=== PATIENT | male | born 1990 | race Caucasian/White ===

== ENCOUNTER 2019-06-26 11:13 | Observation (INO) | payer OTHER ==
[~2019-06-26] VITALS: Ht 167.6 cm; Wt 90.2 kg
[2019-06-26 11:15] VITALS: BP 149/94
[2019-06-26 11:45] LABS: CALCIUM 9.3 mg/dL (8.5-10.1); CREATININE 1.4 mg/dL (0.6-1.3); POTASSIUM 3.4 mmol/L (3.5-5.1)
[2019-06-26 11:48] LABS: APTT 24.8 Seconds (25.0-31.3); PROTIME 10.4 Seconds (9.20-11.50)
[2019-06-26 11:50] LABS: TOTAL BILIRUBIN 0.5 mg/dL (<0.1-1.0); TOTAL PROTEIN 8.7 g/dL (6.4-8.2)
[2019-06-26 11:53] LABS: ABSOLUTE BASOPHILS 0.1 thou/uL (0.0-0.2); ABSOLUTE LYMPHOCYTES 2.2 thou/uL (0.8-5.3); ABSOLUTE MONOCYTES 0.5 thou/uL (0.0-1.2); ABSOLUTE NEUTROPHILS 7.1 thou/uL (1.6-8.1); BASOPHILS 0.9 %; EOSINOPHILS 0.2 %; HEMATOCRIT 53.9 % (42.0-52.0); HEMOGLOBIN 19.4 gm/dL (14.0-18.0); LYMPHOCYTES 22.1 %; MCH 31.7 pg (26.0-34.0); MCHC 35.9 g/dL (28.0-37.0); MCV 88.3 fL (80.0-100.0); MONOCYTES 5.4 %; MPV 9.3 fl. (7.2-11.1); NUCLEATED RBCS 0 /100WBC; PLATELET COUNT* 338 thou/uL (150-400); POLYS 71.4 %; RDW-CV 12.7 % (10.5-14.5)
[2019-06-26 12:16] LABS: URINE BILIRUBIN NEGATIVE (Negative); URINE BLOOD NEGATIVE (Negative); URINE CLARITY CLEAR; URINE COLOR YELLOW; URINE GLUCOSE-RANDOM NEGATIVE (Negative); URINE KETONES NEGATIVE (Negative); URINE LEUKOCYTES-REFLEX NEGATIVE (Negative); URINE NITRITE-REFLEX NEGATIVE (Negative); URINE PROTEIN NEGATIVE (Negative); URINE SPECIFIC GRAVITY <= 1.005 (1.005-1.030); URINE UROBILINOGEN 0.2 E.U./dl (0.2-1.0)
[2019-06-26 12:23] LABS: AMP/METHAMP Negative (Negative); BARBITURATES Negative (Negative); BENZODIAZEPINES Negative (Negative); COCAINE Negative (Negative); METHADONE Negative (Negative); OPIATES Negative (Negative); PCP Negative (Negative); THC Negative (Negative)
--- NOTE | 2019-06-26 15:02 | 2DMMODE ---
[place] [address] 2 D/M-MODE ECHOCARDIOGRAM Name: MAHOGANY MCKENORUBÉN Vazquez Room: [facility]9 ADM IN [place]#: [id number] Admission: 06/26/19 Attend Phys: Ella Hyman, Discharge: Date of : 89 Date of Service: 06/26/19 1500 Report #: [id number] THIS REPORT FOR: cc: FAM - No family physician/PCP FAM - No family physician/PCP Lewis Coffey MD [facility] ~ APPROVED REPORT Study performed: 06/26/2019 14:25:12 EXAM: Comprehensive 2D, Doppler, and color-flow Echocardiogram Patient Location: In-Patient Room #: 207 Status: routine BSA: 1.98 HR: 114 bpm BP: 122/87 mmHg Rhythm: NSR Other Information Study Quality: Good Indications Arrhythmia Chest Pain 2D Dimensions IVSd: 9.84 (7-11mm) LVOT Diam: 19.80 (18-24mm) LVDd: 45.54 mm PWd: 8.40 (7-11mm) Ascending Ao: 28.56 (22-36mm) LVDs: 25.84 (25-40mm) Aortic Root: 26.89 mm Volumes Left Atrial Volume (Systole) LA ESV Index: 18.60 mL/m2 Aortic Valve AoV Peak Spencer.: 1.18 m/s AO Peak Gr.: 5.56 mmHg LVOT Max P.94 mmHg AO Mean Gr.: 3.06 mmHg LVOT Mean P.99 mmHg LVOT Max V: 0.99 m/s AO V2 VTI: 21.19 cm LVOT Mean V: 0.65 m/s GARETH (VTI): 2.78 cm2 LVOT V1 VTI: 19.15 [place] [address] 2 D/M-MODE ECHOCARDIOGRAM Name: FANI MCKEON Room: [address] IN [facility]#: [id number] Admission: 06/26/19 Attend Phys: Ella Hyman, Discharge: Date of : 89 Date of Service: 06/26/19 1500 Report #: [id number] TDI Medial E' Spencer.: 0.24 m/s Lateral E' Spencer.: 0.29 m/s Pulmonary Valve PV Peak Spencer.: 0.81 m/s PV Peak Gr.: 2.62 mmHg Left Ventricle The left ventricle is normal size. There is normal LV segmental wall motion. There is normal left ventricular wall thickness. Left ventricular systolic function is normal. The left ventricular ejection fraction is within the normal range. LVEF is 60-65%. The left ventricular diastolic function is normal. Right Ventricle The right ventricle is normal size. The right ventricular systolic function is normal. Atria The left atrium size is normal. The right atrium size is normal. Aortic Valve The aortic valve is normal in structure. No aortic regurgitation is present. There is no aortic valvular stenosis. Mitral Valve The mitral valve is normal in structure. There is no mitral valve regurgitation noted. No evidence of mitral valve stenosis. Tricuspid Valve The tricuspid valve is normal in structure. There is trace tricuspid valve regurgitation noted. Pulmonic Valve The pulmonary valve is normal in structure. There is no pulmonic valvular regurgitation. Great Vessels The aortic root is normal in size. IVC is normal in size and collapses >50% with inspiration. Pericardium There is [place] [address] 2 D/M-MODE ECHOCARDIOGRAM Name: FANI MCKEON Room: [address] IN .R.#: [id number] Admission: 06/26/19 Attend Phys: Ella Hyman, Discharge: Date of : 89 Date of Service: 06/26/19 1500 Report #: [id number] <Conclusion> Left ventricular systolic function is normal. The left ventricular ejection fraction is within the normal range. <ELECTRONICALLY SIGNED> By: Lewis Coffey MD, [facility] 06/26/191499 1500 [facility] Lewis Coffey MD, FACC /INF
--- NOTE | 2019-06-26 15:20 | EKG ---
[place] [address] ELECTROCARDIOGRAM REPORT Name: FANI MCKEON Room: [place] [address] ADM IN [facility].#: [id number] Admission: 06/26/19 Attend Phys: Ella Hyman, Discharge: Date of : 89 Date of Service: 06/26/19 1117 Report #: [id number] THIS REPORT FOR: //name// [facility] ED Test Date: 2019-06-26 Test Time: 11:17:59 Pat Name: FANI MCKEON Department: Room: [facility] Gender: M Transportation Technician: CCD : 1990 Requested By: Kendall Narvaez Order Number: [id number] MD: Lewis Coffey Measurements Intervals [place] Rate: 129 P: 32 LA: 116 QRS: 70 QRSD: 85 T: -17 QT: 299 QTc: 438 Interpretive Statements multifocal atrial tachycardia Borderline T abnormalities, inferior leads Baseline wander in lead(s) V4 No previous ECG available for comparison Electronically Signed On 06-26-2019 15:18:51 CDT by Lewis Coffey [email or web address] <ELECTRONICALLY SIGNED> By: Lewis Coffey MD, FAC 06/26/19 1518 1117 1117 Lewis Coffey MD, [facility] /EPI
--- NOTE | 2019-06-26 15:29 | EKG ---
[place] [address] ELECTROCARDIOGRAM REPORT Name: FANI MCKEON Room: [place] [address] ADM IN [facility]#: [id number] Admission: 06/26/19 Attend Phys: Ella Hyman, Discharge: Date of : 89 Date of Service: 06/26/19 1226 Report #: [id number] THIS REPORT FOR: //name// [facility] ED Test Date: 2019-06-26 Test Time: 12:26:26 Pat Name: FANI MCKEON Department: Room: [place] [address] Gender: M Senior Copywriter: NEREIDA : 1990 Requested By: Reggie Conley Order Number: [id number] Penny MD: Lewis Coffey Measurements Intervals [place] Rate: 135 P: 48 [place]: 107 QRS: 68 QRSD: 76 T: 13 QT: 301 QTc: 452 Interpretive Statements Fast sinus arrhythmia No previous ECG available for comparison Electronically Signed On 06-26-2019 15:27:37 CDT by Lewis Coffey [email or web address] <ELECTRONICALLY SIGNED> By: Lewis Coffey MD, [facility] 06/26/19 1527 1226 1226 Lewis Coffey MD, [facility] /EPI
[2019-06-26 18:57] VITALS: BP 114/65
[2019-06-26 19:38] VITALS: BP 108/68
--- NOTE | 2019-06-26 19:39 | NUR ---
PT ADMITTED TO ROOM 232 AT APPROXIMATELY 1845. TRACING SA ON MONITOR. PT DENIES SOA, PAIN, N/V/D. REFER TO COMPUTER CHARTING FOR FURTHER DETAIL. HOURLY ROUNDING IN PLACE FOR PT SAFETY. CLWR.
[2019-06-26 20:00] VITALS: BP 118/90
[2019-06-26 23:54] VITALS: BP 105/52
[2019-06-27 04:07] LABS: HEMATOCRIT 48.3 % (42.0-52.0); MCH 31.7 pg (26.0-34.0); MCHC 35.4 g/dL (28.0-37.0); MCV 89.7 fL (80.0-100.0); MPV 9.2 fl. (7.2-11.1); RBC 5.38 mil/uL (4.50-6.00); RDW-CV 12.8 % (10.5-14.5); WBC 9.1 thou/uL (4.0-11.0)
[2019-06-27 04:08] LABS: HEMOGLOBIN 17.1 gm/dL (14.0-18.0)
[2019-06-27 04:13] VITALS: BP 98/57
[2019-06-27 04:29] LABS: CALCIUM 8.4 mg/dL (8.5-10.1); CREATININE 1.1 mg/dL (0.6-1.3); POTASSIUM 3.8 mmol/L (3.5-5.1)
[2019-06-27 04:34] LABS: ALBUMIN 3.6 g/dL (3.4-5.0); MAGNESIUM 1.9 mg/dL (1.8-2.4); TOTAL BILIRUBIN 0.7 mg/dL (<0.1-1.0); TOTAL PROTEIN 6.5 g/dL (6.4-8.2)
[2019-06-27 07:00] VITALS: BP 101/53
--- NOTE | 2019-06-27 07:39 | NUR ---
ASSUMED PT CARE AT 1930. NURSING ASSESSMENT COMPLETED AT START OF SHIFT. SA PACS THIS SHIFT. IV CARDIZEM D/C'd AFTER PT HR DROPPED DOWN TO 30-40'S OVERNIGHT. HOURLY ROUNDING COMPLETED. CALL LIGHT WITHIN REACH.
--- NOTE | 2019-06-27 07:44 | NUR ---
INITAL ASSESSMENT COMPLETED CHARTED. VSS. TRACING SA WITH BRADYCARDIA ON MONITOR. PT DENIES CP, PAIN, SOA, N/V/D. REFER TO COMPUTER CHARTING FOR FURTHER DETAIL. HOURLY ROUNDING IN PLACE FOR PT SAFETY. CLWR.
[2019-06-27 08:49] VITALS: BP 101/53
[2019-06-27] MEDS ORDERED: TOPROL XL25 MG PO (08:49)
--- NOTE | 2019-06-27 10:09 | EKG ---
[place] [address] ELECTROCARDIOGRAM REPORT Name: FANI MCKEON Room: [address] ADM IN M.R.#: [id number] Admission: 06/26/19 Attend Phys: Ella Hyman, Discharge: Date of : 89 Date of Service: 06/26/19 1908 Report #: [id number] THIS REPORT FOR: //name// [facility] Test Date: 2019-06-26 Test Time: 19:08:28 Pat Name: FANI MCKEON Department: Room: [address] Gender: M Licensed Master Social Worker: JENNIFER : 1990 Requested By: Ella Hyman Order Number: [id number] Penny MD: Joseph Jones Measurements Intervals [place] Rate: 108 P: -11 NV: 128 QRS: 45 QRSD: 80 T: 5 QT: 335 QTc: 449 Interpretive Statements Fast sinus arrhythmia Low voltage, precordial leads Borderline T abnormalities, inferior leads Artifact in lead(s) I,II,III,aVR,aVF Compared to ECG 06/26/2019 12:26:26 Low QRS voltage now present T-wave abnormality now present Electronically Signed On 06-27-2019 10:08:01 CDT by Joseph Jones [email or web address] <ELECTRONICALLY SIGNED> By: Joseph Jones MD, [facility] 06/27/19 1008 07 07 Joseph Jones MD, [facility] /EPI
--- NOTE | 2019-06-27 11:11 | CON ---
[address] [address] CONSULTATION Name: FANI MCKEON Room: [address] [place]#: [id number] Admission: 06/26/19 Attend Phys: Ella Hyman MD Discharge: Date of : 89 Report #: [id number] THIS REPORT FOR: //name// cc: LELE Thorne family physician/PCP LELE - Fadumo family physician/PCP ~ THIS REPORT FOR: //name// CC: LELE physician/PCP Ella Hyman DATE OF SERVICE: 06/26/2019 CARDIOLOGY CONSULTATION HISTORY OF PRESENT ILLNESS: The patient is a 28-year-old white male who I was asked to see in the hospital today after he complained of chest pain. No old records available. The patient denies previous history of heart disease. He was doing well until yesterday. He felt his heart beating irregular and felt somewhat lightheaded. Today, he was at work when he became short of breath, his heart was beating fast, he felt lightheaded. He also noticed dull discomfort in his chest. There is no radiation of the pain. Denied any associated diaphoresis or nausea. He has had no bleeding. He came to the hospital and admitted for further evaluation and treatment. PAST MEDICAL HISTORY: Tonsillectomy. There is no history of hypertension, diabetes or hyperlipidemia. MEDICATIONS: He is on no medication. ALLERGIES: He has no known drug allergies. FAMILY HISTORY: His father had bypass surgery. SOCIAL HISTORY: He is . He and his live in [place]. He works for a [employer]. No smoking or alcohol abuse or illicit drug use. Drinks tea occasionally. REVIEW OF SYSTEMS: No history of stroke. He had asthma as a child. No history of GI bleeding, liver disease, kidney disease, cancer, chronic skin condition or psychiatric illness. PHYSICAL EXAMINATION: GENERAL: Revealed a young white male, who appeared in no distress. VITAL SIGNS: He had a blood pressure of 120/90, pulse is 120, and he was afebrile. HEENT: He was anicteric. Conjunctivae pink. [place] [address] CONSULTATION Name: FANI MCKEON Room: [address]#: [id number] Admission: 06/26/19 Attend Phys: Ella Hyman MD Discharge: Date of : 89 Report #: [id number] NECK: Veins nondistended. Neck supple. CHEST: Clear to auscultation. CARDIAC: Regular, tachycardia. S4 gallop. No significant murmur. ABDOMEN: Soft. EXTREMITIES: Had no edema. Posterior tibial pulse 2+ bilaterally. SKIN: Warm and dry. RADIOLOGICAL DATA: His ECG on admission showed a sinus tachycardia, occasional PACs. There was nonspecific T-wave changes noted. Followup ECG showed what appears to be multifocal atrial tachycardia, but again no significant ST or T-wave change. LABORATORY WORK: Sodium 139, potassium 3.4, creatinine is 1.4, glucose 128. His liver function studies were normal. Troponin 0.06. TSH 1.0. White blood cell count was 10.0, hematocrit 53.9. His workup in the Emergency Room, he had a portable chest x-ray that showed normal heart size and clear lung bond. IMPRESSION AND RECOMMENDATIONS: 1. Multifocal atrial tachycardia. I would consider a beta adrienne. I would recommend an echocardiogram. 2. Chest pain. Atypical for angina. Suspect nonischemic. I would not recommend stress testing at this time. 3. Elevated blood glucose. I will rule out diabetes. <ELECTRONICALLY SIGNED> By: Lewis Coffey MD, FACC 06/27/19 1111 1319 [id number] Coffey MD, FACC /nt
== END 2019-06-27 11:15 | disposition home or self-care (01) ==
LOC: M.ERS 11:13 → M.2W 12:53 → M.TBA-ER 12:53 → M.2W 12:53
PROVIDERS: Physician Assistant; ADMIT Internal Medicine
DX: R00.0 Tachycardia, unspecified (principal); Z82.49 Family history of ischemic heart disease and other diseases of the circulatory system